=== PATIENT | male | born 1965 | race Caucasian/White ===

== ENCOUNTER 2022-01-24 10:30 | Day surgery (SDC) | payer BC, OTHER ==
[2022-01-22 10:46] VITALS: BMI 29.1
[~2022-01-24 10:30] MED LIST: LACTATED RINGERS 1,000 ML IV SCH; LIDOCAINE 1% (10MG/ML) FOR IV START INTRADERMA PRN
[2022-01-24 11:22] VITALS: RESP 16; TEMP 97.4
[2022-01-24] MEDS ORDERED: hydrALAZINE HCL 20 MG/ML 1 ML VIAL IVP ONE (12:08)
[2022-01-24] MEDS ORDERED: PROPOFOL 10 MG/ML 20 ML VIAL IV ONE (12:14)
--- NOTE | 2022-01-24 12:27 | P.PCN ---
Date of Procedure: 01/24/22 Procedure(s) Performed: BRIEF HISTORY: Patient is a 56-year-old pleasant male scheduled for an elective colonoscopy as a part of screening for colorectal neoplasia. PROCEDURE PERFORMED: Colonoscopy. PREOPERATIVE DIAGNOSIS: Screening for colon cancer. IV sedation per Anesthesia. PROCEDURE: After informed consent was obtained, the patient, was brought into the endoscopy unit. IV sedation was administered by Anesthesia under continuous monitoring. Digital rectal examination was normal. Initially the Olympus CF-160 flexible video colonoscope was then inserted in the rectum, gradually advanced into the cecum without any difficulty. Careful examination was performed as the scope was gradually being withdrawn. Ileocecal valve and the appendiceal orifice were visualized and appeared normal. Prep was excellent. Mucosa of the cecum, ascending colon, transverse colon, descending colon, sigmoid colon, and rectum appeared normal. Scattered sigmoid diverticulosis. Retroflexion was performed in the rectum and no lesions were seen. The patient tolerated the procedure well. IMPRESSION: Normal-appearing colon from rectum to cecum with no evidence of colorectal neoplasia. Scattered sigmoid diverticulosis. RECOMMENDATIONS: Findings of this examination were discussed with the patient as well as his family.. Advised to have a repeat screening colonoscopy in 10 years
[2022-01-24 12:48] VITALS: BP 143/89; PULSE 90
== END 2022-01-24 13:09 | disposition home or self-care (01) ==
LOC: ORWHC2ENDO 10:30
PROVIDERS: ATTEND Internal Medicine Gastroenterology
DX: K57.30 Diverticulosis of large intestine without perforation or abscess without bleeding (principal); K21.9 Gastro-esophageal reflux disease without esophagitis
CPT/HCPCS: 45378; J0360; J2704

== ENCOUNTER 2022-07-15 15:58 | Emergency (ER) | payer BC, OTHER ==
[2022-07-15] MEDS ORDERED: LIDOCAINE 1% INJ 10MG/ML (30 ML VIAL-PF) SQ ONE (18:48)
[2022-07-15] MEDS ORDERED: CEPHALEXIN 250 MG CAP PO STA (18:58)
[2022-07-15 19:15] VITALS: BP 157/82; PULSE 91; RESP 17; TEMP 98.4
--- NOTE | 2022-07-15 20:00 | ED ---
Wound/Laceration HPI - General Chief Complaint: Wound/Laceration Stated Complaint: [facility] hand finger injury Time Seen by Provider: 07/15/22 18:47 Source: patient Mode of arrival: ambulatory - History of Present Illness Initial Comments: Patient is a 56-year-old male who presents from [facility] for left pointer finger laceration. Patient cut himself on a pipe at work. Reports minimal pain. Denies numbness and tingling. Last tetanus within 5 years. - Related Data Previous Rx's Medication Instructions Recorded Cephalexin [Keflex] 500 mg PO Q6HR 1 Days #20 cap 07/15/22 Allergies Allergy/AdvReac Type Severity Reaction Status Date / Time No Known Allergies Allergy Verified 07/15/22 16:17 Review of Systems ROS Statement: Those systems with pertinent positive or pertinent negative responses have been documented in the HPI. ROS Other: All systems not noted in ROS Statement are negative. Past Medical History Past Medical History: Osteoarthritis (OA), Skin Disorder Additional Past Medical History / Comment(s): varicose veins,psoriasis History of Any Multi-Drug Resistant Organisms: MRSA Date of last positivie culture/infection: 2010/MRSA MDRO Source:: once in a foot and once in a knee-pt does not recall laterallity or yr exac Past Surgical History: Joint Replacement, Orthopedic Surgery Additional Past Surgical History / Comment(s): 01/15/15 Anterior approach total R hip arthroplasty, wisdom teeth Past Anesthesia/Blood Transfusion Reactions: No Reported Reaction Additional Past Anesthesia/Blood Transfusion Reaction / Comment(s): never has had general anesthesia. Past Psychological History: No Psychological Hx Reported Smoking Status: Never smoker - Past Family History Mother Additional Family Medical History / Comment(s): hip replacement,back "issues" Father Additional Family Medical History / Comment(s): traumatic car a ccident General Exam General appearance: alert, in no apparent distress Head exam: Present: atraumatic, normocephalic, normal inspection Respiratory exam: Present: normal lung sounds bilaterally. Absent: respiratory distress, wheezes, rales, rhonchi, stridor Cardiovascular Exam: Present: regular rate, normal rhythm, normal heart sounds. Absent: systolic murmur, diastolic murmur, rubs, gallop, clicks Extremities exam: Present: other (2 cm laceration over the left distal pointer finger. Neurovascular intact. Full range of motion) Neurological exam: Present: alert, oriented X3, CN II-XII intact Psychiatric exam: Present: normal affect, normal mood Skin exam: Present: warm, dry, intact, normal color. Absent: rash Course Vital Signs 07/15/22 07/15/22 16:14 19:15 Temperature 97.8 F 98.4 F Pulse Rate 101 H 91 Respiratory 18 17 Rate Blood Pressure 115/72 157/82 O2 Sat by Pulse 98 97 Oximetry Procedures - Laceration Laceration #1 Consent Obtained: verbal consent Indication: laceration Site: other (left index finger) Description: irregular Anesthetic Used: lidocaine 1% Anesthesia Technique: nerve block Pre-repair: wound explored, irrigated extensively Type of Sutures: nylon Size of Sutures: 5-0 Number of Sutures: 6 Patient Tolerated Procedure: well, no complications Medical Decision Making - Medical Decision Making This is a 56-year-old male presenting laceration. Laceration irrigated thoroughly and well approximated with 6 sutures, performed by myself. Wound education discussed in detail. Patient states he has an artificial hip therefore [facility] requests oral antibiotics. Patient will be discharged with Keflex. First dose given in the emergency department. He will return in 7-[address] Young is my attending. Disposition Clinical Impression: Laceration Disposition: HOME SELF-CARE Condition: Good Instructions (If sedation given, give patient instructions): Care For Your Stitches (ED), Laceration (ED) Additional Instructions: Take antibiotic as directed. Leave wound uncovered. Keep wound clean and dry. Wash with a mild soap. Take Tylenol or anti-inflammatories such as Motrin for pain. Follow-up with primary care provider in 1-2 days. Return for suture removal in 7-10 days. Report back to the emergency department if you experience new, concerning, or worsening symptoms. Prescriptions: Cephalexin [Keflex] 500 mg PO Q6HR 1 Days #20 cap Is patient prescribed a controlled substance at d/c from ED?: No Referrals: Tonny Spears MD [Primary Care Provider] - 1-2 days Time of Disposition: 20:00
== END 2022-07-15 20:07 | disposition home or self-care (01) ==
LOC: EC 15:58
DX: S61.211A Laceration without foreign body of left index finger without damage to nail, initial encounter (principal); W26.9XXA Contact with unspecified sharp object(s), initial encounter; Y99.8 Other external cause status; Y92.69 Other specified industrial and construction area as the place of occurrence of the external cause
CPT/HCPCS: 12001; 99283; J2001